=== PATIENT | male | born 1960 | race Caucasian/White ===

== ENCOUNTER 2018-02-02 14:40 | Outpatient (REF) | payer SELFPAY ==
[2018-02-02 19:32] LABS: COMMENT (LAB VIEW ONLY) 51.18 mg/dL; Microalb ug/mg Crea 6.8 ug/mg Cr
== END 2018-02-02 15:00 ==
LOC: NCHCN 14:40
PROVIDERS: PCP Internal Medicine; Visit Provider Family Medicine
DX: E11.9 Type 2 diabetes mellitus without complications (principal); Z79.4 Long term (current) use of insulin
CPT/HCPCS: 82043; 82570

== ENCOUNTER 2019-04-23 12:17 | Outpatient (REF) | payer OTHER, SELFPAY ==
[2019-04-23 15:38] LABS: Microalb ug/mg Crea 10.9 ug/mg Cr
[2019-04-23 19:40] LABS: ALT 36 U/L (16-63); AST 16 U/L (15-37); Albumin 4.2 g/dL (3.4-5.0); Alkaline Phosphatase 72 U/L (46-116); Anion Gap 11.3 mmol/L (3-11); BUN 19 mg/dL (7-18); Bilirubin, Total 0.6 mg/dL (0.2-1.0); CO2 27.7 mmol/L (21.0-32.0); CREATININE 0.87 mg/dL (0.70-1.30); Calcium 9.1 mg/dL (8.5-10.1); Chloride 98 mmol/L (98-107); Glucose 459 mg/dL (74-106); Potassium 4.5 mmol/L (3.5-5.1); Sodium 137 mmol/L (136-145); Total Protein 7.2 g/dL (6.4-8.2)
== END 2019-04-23 12:37 ==
LOC: NCHCN 12:17
PROVIDERS: PCP Internal Medicine; Visit Provider Family Medicine
DX: I10 Essential (primary) hypertension (principal); E11.9 Type 2 diabetes mellitus without complications; Z79.4 Long term (current) use of insulin
CPT/HCPCS: 80053; 82043; 82570

== ENCOUNTER 2020-02-24 07:12 | Emergency (ER) | payer OTHER, SELFPAY ==
--- NOTE | 2020-02-24 07:48 | W.ED.GENAD ---
Discharge Plan Disposition Patient Disposition: HOME Condition: Stable Discharge Details Clinical Impression: Constipation Primary Care Provider: Sebastian Stanley ED Provider: Mukul Garcia Home Meds and New Rx's Prescriptions: New docusate sodium [Colace] 100 mg capsule 100 mg PO BID Qty: 30 RF: 0 Continued atorvastatin [Lipitor] 80 MG tablet 80 mg PO DAILY RF: 0 Lantus U-100 Insulin 100 UNIT/ML solution 100 unit SQ RF: 0 aspirin [Aspir-81] 81 MG tablet,delayed release (DR/EC) 81 mg PO DAILY RF: 0 pantoprazole 40 MG tablet,delayed release (DR/EC) 40 mg PO DAILY RF: 0 lisinopril 10 MG tablet 10 mg PO DAILY RF: 0 lisinopril-hydrochlorothiazide 20-12.5 mg tablet RF: 0 metformin 1,000 mg tablet 1,000 mg PO DAILY RF: 0 Discharge Instructions Instructions: Constipation (ED) Additional Instructions: Please increase liquids in your diet today. Please contact your primary care physician to arrange follow-up. Return to the ER for any worsening or new concerning symptoms. Referrals: Jewel Winters MD [ NON-[facility] STAFF PHYSICIAN] - Medical Decision Making <Espinoza Granados DO - Last Filed: 02/24/20 07:58> 59-year-old male with high cholesterol, diabetes, hypertension, presents today for evaluation of constipation. Patient states that he recently switched from drinking notable amount of water at work every day to a caffeinated beverage. Over the last week he has had mild constipation, with no recent bowel movements in the last 48 hours. He denies any bladder narcotic use. He denies any significant weight loss. No other complaints at this time. Exam demonstrates no abdominal tenderness or other significant abnormality aside for notable hard stool ball in the rectal vault. This stool ball was then subsequently broken up into multiple pieces, with mild improvement of the patient's symptoms. We will perform a enema to help alleviate the patient's symptomatology now. Patient will be signed out to my colleague Dr. Mukul Garcia for reassessment after enema. <Mukul Garcia MD - Last Filed: 02/24/20 10:04> Patient was reassessed by Dr. Granados just prior to signout. Patient feeling much better and requesting discharge. Patient determined to be stable. Usual customary discharge instructions were reviewed with the patient. Patient was encouraged to follow-up with his doctor and to return should have any worsening or new concerning symptoms. HPI <Espinoza Granados DO - Last Filed: 02/24/20 07:58> General Date/Time Provider Initiated Documentation: 02/24/20 07:16. HPI Narrative: 59-year-old male with high cholesterol, diabetes, hypertension, presents today for evaluation of constipation. Patient states that he recently switched from drinking notable amount of water at work every day to a caffeinated beverage. Over the last week he has had mild constipation, with no recent bowel movements in the last 48 hours. He denies any bladder narcotic use. He denies any significant weight loss. No other complaints at this time. Related Data Home Medications Medication Instructions Recorded Confirmed Lantus U-100 Insulin 100 unit SQ 12/30/13 12/30/13 aspirin [Aspir-81] 81 mg PO DAILY 12/30/13 02/24/20 atorvastatin [Lipitor] 80 mg PO DAILY 12/30/13 02/24/20 lisinopril 10 mg PO DAILY 12/30/13 12/30/13 pantoprazole 40 mg PO DAILY 12/30/13 02/24/20 docusate sodium [Colace] 100 mg PO BID #30 cap 02/24/20 lisinopril-hydrochlorothiazide tab 02/24/20 02/24/20 metformin 1,000 mg PO DAILY 02/24/20 02/24/20 Previous Rx's Medication Instructions Recorded docusate sodium [Colace] 100 mg PO BID #30 cap 02/24/20 Allergies Allergy/AdvReac Type Severity Reaction Status Date / Time No Known Allergies Allergy Unverified 02/24/20 07:53 Review of Systems <Espinoza Granados DO - Last Filed: 02/24/20 07:58> All systems reviewed & are unremarkable except as noted in HPI and below PFSH <Espinoza Granados DO - Last Filed: 02/24/20 07:58> Social History Smoking/Tobacco Use Status: Never Smoking risk assessment performed?: Yes Alcohol Intake: never Drug use: Never Exam <Espinoza Granados DO - Last Filed: 02/24/20 07:58> Narrative Exam Narrative: 1.Const: Well-nourished, Well-developed, appearing stated age 2.Eyes: PERRL, no conjunctival injection, and symmetrical lids. 3.ENT: Atraumatic external nose and ears. Moist MM. Neck: Symmetric, trachea midline, No thyromegaly. 4.CVS: +S1/S2, No murmurs or gallops. Peripheral pulses 2+ and equal in all extremities. Brisk capillary refill in all extremities. 5.RESP: Unlabored respiratory effort. Clear to auscultation bilaterally. No wheezes rales or rhonchi 6.GI: Soft, Nontender/Nondistended, No hepatosplenomegaly. No guarding or rebound. Rectal exam performed with female nurse Alexa at bedside demonstrates no bulge or mass or significant abnormality. Digital rectal exam demonstrates notably large hard stool ball with firm stool, this is digitally broken up with a mild to moderate amount removed. 7.MSK: Normocephalic/Atraumatic, Extremities w/o deformity or ttp No cyanosis or clubbing, Normal movement of all extremities 8.Skin: Warm, Dry. No rashes or lesions. 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 Sensation grossly intact, no focal neurologic deficits. 10.Psych: (AAO) x3. Appropriate mood and affect Sign Out <Espinoza Granados DO - Last Filed: 02/24/20 07:58> Sign Out Data: Sign Out Comment: Pending reassessment after enemas. Last updated by Espinoza Granados DO at 02/24/20 07:59
[2020-02-24 07:50] VITALS: BP 114/83; PULSE 110; RESP 16; TEMP 36; O2SAT 98
[2020-02-24] MEDS: Lidocaine 2% Viscous 15 ML CUP 30 ML PO (08:00)
[2020-02-24 08:30] VITALS: BP 105/70; PULSE 109; RESP 16; TEMP 36; O2SAT 98
== END 2020-02-24 08:28 | disposition home or self-care (01) ==
LOC: ER 08:28
PROVIDERS: Emergency Provider Student in an Organized Health Care Education/Training Program; PCP Family Medicine
DX: K59.00 Constipation, unspecified (principal); I10 Essential (primary) hypertension; E11.9 Type 2 diabetes mellitus without complications; Z79.4 Long term (current) use of insulin
CPT/HCPCS: 99283

== ENCOUNTER 2020-03-06 11:03 | Outpatient (REF) | payer OTHER, SELFPAY ==
[2020-03-06 18:13] LABS: HCT 37.8 % (40.0-50.0); HGB 13.2 g/dL (13.5-17.5); MCH 31.9 pg (27.0-33.0); MCHC 34.9 % (32.0-36.0); MCV 91.3 fL (80-95); MPV 11.5 fL (8.0-11.0); Platelet Count 240 10^3/uL (130-400); RBC 4.14 10^6/uL (4.36-5.78); RDW 11.7 % (11.8-14.1); RDW-SD 39.4 fL; WBC 9.65 10^3/uL (4.4-10.8)
[2020-03-06 18:42] LABS: ALT 29 U/L (16-63); AST 11 U/L (15-37); Albumin 3.9 g/dL (3.4-5.0); Alkaline Phosphatase 54 U/L (46-116); Anion Gap 9.9 mmol/L (3-11); BUN 39 mg/dL (7-18); Bilirubin, Total 0.3 mg/dL (0.2-1.0); CO2 25.1 mmol/L (21.0-32.0); CREATININE 1.83 mg/dL (0.70-1.30); Calcium 10.3 mg/dL (8.5-10.1); Chloride 103 mmol/L (98-107); Estimated GFR 38.21 (mL/min/1.73m2); Glucose 87 mg/dL (74-106); Potassium 4.1 mmol/L (3.5-5.1); Sodium 138 mmol/L (136-145); Total Protein 6.8 g/dL (6.4-8.2)
[2020-03-06 18:44] LABS: Hemoglobin A1C 5.9 % (<5.7)
== END 2020-03-06 11:23 ==
LOC: NCHCN 11:03
PROVIDERS: PCP Family Medicine; Visit Provider Family Medicine
DX: E11.9 Type 2 diabetes mellitus without complications (principal); R07.89 Other chest pain
CPT/HCPCS: 80053; 85027; 83036

== ENCOUNTER 2020-03-11 14:10 | Outpatient (REF) | payer OTHER, SELFPAY ==
[2020-03-15 08:01] LABS: Patient Race White; SARS-CoV-2 RNA Undetected (Undetected); SARS-CoV-2 Specimen Source Nasal
== END 2020-03-11 14:30 ==
LOC: NCHCN 14:10
PROVIDERS: PCP Family Medicine; Visit Provider Nurse Practitioner Family
DX: Z20.828 Contact with and (suspected) exposure to other viral communicable diseases (principal)
CPT/HCPCS: U0003

== ENCOUNTER 2020-03-21 08:57 | Outpatient (REF) | payer OTHER, SELFPAY ==
[2020-03-21 18:24] LABS: BUN 17 mg/dL (7-18); CREATININE 1.33 mg/dL (0.70-1.30); Chloride 103 mmol/L (98-107); Estimated GFR 55.23 (mL/min/1.73m2); Glucose 219 mg/dL (74-106); Sodium 139 mmol/L (136-145)
== END 2020-03-21 09:17 ==
LOC: NCHCN 08:57
PROVIDERS: PCP Family Medicine; Visit Provider Family Medicine
DX: N28.9 Disorder of kidney and ureter, unspecified (principal)
CPT/HCPCS: 80048

== ENCOUNTER 2021-03-17 15:40 | Outpatient (REF) | payer OTHER, SELFPAY ==
[2021-03-17 22:45] LABS: Anion Gap 7.8 mmol/L (3-11); BUN 21 mg/dL (7-18); CO2 28.2 mmol/L (21.0-32.0); CREATININE 1.3 mg/dL (0.70-1.30); Calcium 9.4 mg/dL (8.5-10.1); Chloride 101 mmol/L (98-107); Glucose 188 mg/dL (74-106); Sodium 137 mmol/L (136-145)
== END 2021-03-17 15:41 | disposition home or self-care (01) ==
LOC: LBN 15:40
PROVIDERS: PCP Family Medicine; Visit Provider Family Medicine
DX: E11.9 Type 2 diabetes mellitus without complications (principal); I10 Essential (primary) hypertension
CPT/HCPCS: 80048; 83036

== ENCOUNTER 2021-05-06 21:52 | Outpatient (REF) | payer BC, SELFPAY ==
[2021-05-06 22:04] LABS: BUN 39 mg/dL (7-18); CREATININE 1.6 mg/dL (0.70-1.30); Calcium 10.4 mg/dL (8.5-10.1); Chloride 96 mmol/L (98-107); Estimated GFR 44.46 (mL/min/1.73m2); Potassium 5.4 mmol/L (3.5-5.1); Sodium 131 mmol/L (136-145)
[2021-05-06 23:09] LABS: Glucose 527 mg/dL (74-106)
[2021-05-08 15:09] LABS: COVID-19 RT-PCR UVMMC Result Negative (Negative)
== END 2021-05-06 21:53 | disposition home or self-care (01) ==
LOC: LBN 21:52
PROVIDERS: PCP Family Medicine; Visit Provider Physician Assistant Medical
DX: E11.9 Type 2 diabetes mellitus without complications (principal)
CPT/HCPCS: 80048; U0003

== ENCOUNTER 2021-05-19 17:24 | Outpatient (REF) | payer BC, SELFPAY ==
[2021-05-19 16:31] LABS: HCT 36.5 % (40.0-50.0); HGB 12.6 g/dL (13.5-17.5); MCH 31.5 pg (27.0-33.0); MCHC 34.5 % (32.0-36.0); MCV 91.3 fL (80-95); MPV 12.2 fL (8.0-11.0); Platelet Count 170 10^3/uL (130-400); RDW 11.7 % (11.8-14.1); RDW-SD 39.2 fL
[2021-05-19 17:34] LABS: ALT 48 U/L (16-63); AST 19 U/L (15-37); Albumin 3.8 g/dL (3.4-5.0); Alkaline Phosphatase 62 U/L (46-116); Anion Gap 10.2 mmol/L (3-11); BUN 19 mg/dL (7-18); Bilirubin, Total 0.5 mg/dL (0.2-1.0); CO2 24.8 mmol/L (21.0-32.0); CREATININE 1.2 mg/dL (0.70-1.30); Calcium 8.4 mg/dL (8.5-10.1); Calculated LDL 79 mg/dL (<100); Chloride 105 mmol/L (98-107); Cholesterol 138 mg/dL (<200); Glucose 131 mg/dL (74-106); HDL Cholesterol 38 mg/dL (40-60); Potassium 4.4 mmol/L (3.5-5.1); Sodium 140 mmol/L (136-145); Total Protein 6.8 g/dL (6.4-8.2); Triglyceride 109 mg/dL (<150)
== END 2021-05-19 17:25 | disposition home or self-care (01) ==
LOC: LBN 17:24
PROVIDERS: PCP Family Medicine; Visit Provider Family Medicine
DX: N28.9 Disorder of kidney and ureter, unspecified (principal); D64.9 Anemia, unspecified; E11.9 Type 2 diabetes mellitus without complications
CPT/HCPCS: 80053; 80061; 85027

== ENCOUNTER 2022-05-18 17:54 | Outpatient (REF) | payer BC, SELFPAY ==
[2022-05-18 14:06] LABS: HCT 42.8 % (40.0-50.0); MCH 31.4 pg (27.0-33.0); MCV 90 fL (80-95); MPV 10.4 fL (8.0-11.0); Platelet Count 208 10^3/uL (130-400); RBC 4.78 10^6/uL (4.36-5.78); RDW 12.6 % (11.8-14.1); RDW-SD 41.6 fL; WBC 8.77 10^3/uL (4.4-10.8)
[2022-05-18 14:58] LABS: Iron 135 ug/dL (65-175); Total Iron Binding Capacity 403 ug/dL (250-450); Transferrin Sat 33 % (20-55)
[2022-05-18 15:00] LABS: Hemoglobin A1C 6.3 % (<5.7)
[2022-05-18 15:30] LABS: ALT 74 U/L (16-63); AST 40 U/L (15-37); Albumin 4.6 g/dL (3.4-5.0); Alkaline Phosphatase 67 U/L (46-116); BUN 18 mg/dL (7-18); Bilirubin, Total 0.7 mg/dL (0.2-1.0); CREATININE 1.1 mg/dL (0.70-1.30); Calcium 9.8 mg/dL (8.5-10.1); Chloride 97 mmol/L (98-107); Estimated GFR 76.85 (mL/min/1.73m2); Ferritin 74 ng/mL (26-388); Glucose 110 mg/dL (74-106); Potassium 4.7 mmol/L (3.5-5.1); Sodium 132 mmol/L (136-145); Total Protein 7.7 g/dL (6.4-8.2); Vitamin B12 347 pg/mL (193-986)
[2022-05-18 21:39] LABS: COMMENT (LAB VIEW ONLY) 138.91 mg/dL; Microalb ug/mg Crea 14.6 ug/mg Cr
== END 2022-05-18 17:55 | disposition home or self-care (01) ==
LOC: LBN 17:54
PROVIDERS: PCP Family Medicine; Visit Provider Family Medicine
DX: D64.9 Anemia, unspecified (principal); E11.9 Type 2 diabetes mellitus without complications; Z79.4 Long term (current) use of insulin; Z79.899 Other long term (current) drug therapy; E78.5 Hyperlipidemia, unspecified
CPT/HCPCS: 80053; 85027; 82043; 82570; 82607; 82728; 83036; 83540; 83550

== ENCOUNTER 2022-05-19 09:58 | Emergency (ER) | payer BC, SELFPAY ==
[2022-05-19 10:13] VITALS: BP 151/81; PULSE 97; RESP 18; TEMP 36.9; O2SAT 99
--- NOTE | 2022-05-19 10:28 | ED.GENADUL_ITS ---
Discharge Plan Disposition Patient Disposition: Home Condition: Stable Discharge Details Clinical Impression: Bat bite of finger Primary Care Provider: Sebastian Stanley ED Provider: Umair Simon Home Meds and New Rx's Prescriptions: Continued atorvastatin [Lipitor] 80 MG tablet 80 mg PO DAILY Lantus U-100 Insulin 100 UNIT/ML solution 100 unit SQ aspirin [Aspir-81] 81 MG tablet,delayed release (DR/EC) 81 mg PO DAILY pantoprazole 40 MG tablet,delayed release (DR/EC) 40 mg PO DAILY lisinopril 10 MG tablet 10 mg PO DAILY lisinopril-hydrochlorothiazide 20-12.5 mg tablet Label Comments: TAKE 1 TABLET BY MOUTH ONCE DAILY FOR BLOOD PRESSURE AND KIDNEYS metformin 1,000 mg tablet 1,000 mg PO DAILY Label Comments: TK 1 T PO QD FOR BLOOD SUGAR docusate sodium [Colace] 100 mg capsule 100 mg PO BID Qty: 30 0RF Discharge Instructions Instructions: Rabies Vaccine (By injection) Additional Instructions: You should be contacted to set up to have your subsequent vaccines on 05/22, 05/26, 06/02 if you develop severe pain, fevers or feel more ill return to the emergency department Medical Decision Making 61 yo male who denies prior vaccinations for rabies and not on i mmunosuppressives, comes in with cc of bat bite. HE was changing in his room last night, and his foot hit a bat on the floor he did not see and it started to fly around and he states it bit his left index finger. Denies fall or other injuries, has no symptoms today and feels well. He has a small 1mm abrasion on the lateral distal left index finger, full rom and no bony tenderness. No erythema. Discussed with pt that this is high risk and recommend rabies vaccine and immunoglobulin which he is agreeable to. He is also agreeable to the subsequent vaccines on day 3, 7, and 14 which I have ordered to be done through the infusion room. Will d/c, return precautions given Differential Diagnosis Differential Diagnosis: bat bite, rabies exposure HPI General Mode of arrival: ambulatory . Date/Time Provider Initiated Documentation: 05/19/22 10:00 . Limitations to Documentation: no limitations . Information obtained by: patient . History of Present Illness 61 year old M presents to the emergency department with the chief complaint of bat bite, described as mild, Patient reports no radiation. Patient started experiencing this day(s) (1) and it has been constant. No relieving factors improve symptom(s), No exacerbating factors reported . Patient notes no other symptoms.. Patient did receive the following treatments prior to arrival, none Related Data Home Medications Medication Instructions Recorded Confirmed aspirin 81 mg tablet,delayed 81 mg PO DAILY 12/30/13 02/24/20 release (Aspir-) atorvastatin 80 mg tablet (Lipitor) 80 mg PO DAILY 12/30/13 02/24/20 insulin glargine 100 unit/mL 100 unit SQ 12/30/13 12/30/13 subcutaneous solution (Lantus U-100 Insulin) lisinopril 10 mg tablet 10 mg PO DAILY 12/30/13 12/30/13 pantoprazole 40 mg tablet,delayed 40 mg PO DAILY 12/30/13 02/24/20 release docusate sodium 100 mg capsule 100 mg PO BID #30 caps 02/24/20 (Colace) lisinopril 20 tab 02/24/20 02/24/20 mg-hydrochlorothiazide 12.5 mg tablet metformin 1,000 mg tablet 1,000 mg PO DAILY 02/24/20 02/24/20 Previous Rx's Medication Instructions Recorded docusate sodium 100 mg capsule 100 mg PO BID #30 caps 02/24/20 (Colace) Allergies Allergy/AdvReac Type Severity Reaction Status Date / Time No Known Allergies Allergy Unverified 02/24/20 07:53 General Stated Complaint: GenMedical DIDIER: 4 Review of Systems All systems reviewed & are unremarkable except as noted in HPI and below Constitutional Constitutional: Denies chills, Denies fever(s) and Denies weakness Cardiovascular Cardiovascular: Denies chest pain and Denies dyspnea Respiratory Respiratory: Denies cough and Denies dyspnea Gastrointestinal Gastrointestinal: Denies abdominal pain, Denies nausea and Denies vomiting Musculoskeletal Musculoskeletal: Denies joint swelling Integumentary/Breasts Skin/Breast: Denies rash Neurologic Neurologic: Denies weakness Psychiatric Psychiatric: Denies depression PFSH All Active Problems (Updated 05/19/22 @ 10:34 by Umair Simon MD) Bat bite of finger (Acute) Social History Smoking/Tobacco Use Status: Never Smoking risk assessment performed?: Yes Alcohol Intake: never Drug use: Never Do you feel safe at home: Yes Do you feel safe in your relationship?: Yes Exam Const General: no acute distress Orientation: alert HENMT Head: normal to inspection Ears: external ears normal General nose exam: external nose normal Mouth: moist mucous membranes Eyes General: appearance normal, both eyes and all related structures Neck Neck: normal visual inspection Resp Effort & Inspection: normal respiratory effort and able to speak in complete sentences Cardio Rate: regular rate Skin General skin exam: no rashes or lesions noted Neuro General: patient alert and patient oriented x3 Extrem General: full ROM and capillary refill normal Psych Mental Status: mental status grossly normal Course Vital Signs Vital signs: Vital Signs Temperature 36.9 C 05/19/22 10:13 Pulse 97 H 05/19/22 10:13 Respiratory Rate 18 05/19/22 10:13 Blood Pressure 151/81 H 05/19/22 10:13 Pulse Oximetry 99 05/19/22 10:13 Temperature 36.9 C 05/19/22 10:13 Temperature Source Tympanic 05/19/22 10:13 Pulse 97 H 05/19/22 10:13 Respiratory Rate 18 05/19/22 10:13 Respiratory Effort 05/19/22 10:15 Blood Pressure 151/81 H 05/19/22 10:13 Blood Pressure Position Supine 05/19/22 10:13 Pulse Oximetry 99 05/19/22 10:13 Oxygen Delivery Method Room Air 05/19/22 10:13 Oxygen Flow Rate 0 05/19/22 10:13 Pain Level 0 05/19/22 10:13
--- NOTE | 2022-05-19 10:41 | NUR.NOTE ---
Nursing Note: Pt preparing to transfer to [place] via EMS and pt requesting nicotine inhaler for transport. Last dose delivered 2 hours ago. Discussed situation w/ ED physician who advised to administer nicotine early for transport.
--- NOTE | 2022-05-19 10:55 | NUR.NOTE ---
Nursing Note: Faxed rabies vaccination orders to [facility] and spoke with Daylin that they are aware. Patient given copy of vaccination orders for further dates of shots. F[facility] Bite [facility] and spoke with Justin dispatcher.
[2022-05-19] MEDS: Rabies Immune Globulin 1,500 UNIT/5 ML VIAL 1500 UNITS IM (11:18)
[2022-05-19 15:13] VITALS: RESP 15
== END 2022-05-19 11:48 | disposition home or self-care (01) ==
PROVIDERS: Emergency Provider Emergency Medicine; PCP Family Medicine
DX: S61.251A Open bite of left index finger without damage to nail, initial encounter (principal); Z23 Encounter for immunization; W55.81XA Bitten by other mammals, initial encounter
CPT/HCPCS: 90471; 99282; 90675

== ENCOUNTER 2022-05-22 00:19 | Outpatient (RCR) | payer BC, SELFPAY | END 2022-05-25 23:59 | disposition home or self-care (01) | LOC: INF 00:19 | PROVIDERS: PCP Family Medicine; Visit Provider Emergency Medicine | DX: Z20.3 Contact with and (suspected) exposure to rabies (principal) | CPT/HCPCS: 90471; 96372; 90675 ==

== ENCOUNTER 2022-06-02 03:36 | Outpatient (RCR) | payer BC, SELFPAY | END 2022-06-22 23:59 | disposition home or self-care (01) | LOC: INF 03:36 | PROVIDERS: PCP Family Medicine; Visit Provider Emergency Medicine | DX: Z20.3 Contact with and (suspected) exposure to rabies (principal) | CPT/HCPCS: 90471; 90675 ==

== ENCOUNTER 2022-08-08 13:09 | Emergency (ER) | payer BC, SELFPAY ==
[2022-08-08] VITALS (7 sets, daily range): BP systolic 144–162; BP diastolic 82–84; PULSE 83–87; RESP 14–18; TEMP 36.7; O2SAT 98
--- NOTE | 2022-08-08 13:15 | RT.EKG_ITS ---
APPROVED REPORT Exam: Resting ECG Reason for Exam: near syncope Patient Location: E HR:85 bpm ECG Measurements Heart Rate 85 AXIS SD 198 P 22 QRSd 94 QRS -3 QT 365 T 5 QTc 434 Conclusion Sinus rhythm...normal P axis, V-rate 60- 99 Ventricular premature complex...V complex w/ short R-R interval Inferior infarct, old...Q >35mS, II III aVF motion artifact, no stemi
--- NOTE | 2022-08-08 13:28 | ED.GENADUL_ITS ---
Discharge Plan Disposition Patient Disposition: Home Condition: Stable Discharge Details Clinical Impression: Lightheaded Primary Care Provider: Sebastian Stanley ED Provider: Umair Simon Home Meds and New Rx's Prescriptions: Continued atorvastatin [Lipitor] 80 MG tablet 80 mg PO DAILY insulin glargine [Lantus U-100 Insulin] 100 UNIT/ML solution 100 unit SQ aspirin [Aspir-81] 81 MG tablet,delayed release (DR/EC) 81 mg PO DAILY Patient Comments: not taking pantoprazole 40 MG tablet,delayed release (DR/EC) 40 mg PO DAILY lisinopril 10 MG tablet 10 mg PO DAILY lisinopril-hydrochlorothiazide 20-12.5 mg tablet 1 tab PO DAILY Patient Comments: TAKE 1 TABLET BY MOUTH ONCE DAILY FOR BLOOD PRESSURE AND KIDNEYS metformin 1,000 mg tablet 1,000 mg PO DAILY Patient Comments: TK 1 T PO QD FOR BLOOD SUGAR docusate sodium [Colace] 100 mg capsule 100 mg PO BID Qty: 30 0RF Discharge Instructions Instructions: Lightheadedness (ED) Additional Instructions: your ekg and blood work were reassuing as was your exam follow up with your primary care provider within 1 week if you feel more ill, have severe pain or difficulty breathing return to the emergency department Medical Decision Making 61 yo male with hx of dm, htn, hld, who comes in after he had a near syncope. He states he was feeling well today and was standing in a store parking lot talking with someone when he suddenly felt lightheaded and like he may pass out. He never had loc, and currently has no symptoms other than nausea. Denies having any chest pain/pressure, dyspnea, no fevers or chills recently. HE arrives ambulatory with normal gait, caox4 speaking clearly. He has no focal motor or sensation deficits, CN II-XII intact. Soft nontender abdomen, clear lungs, no murmurs, no leg swelling or calf tenderness. IT has been warm the last few days and he is active, suspect mild dehydration vs vasovagal, ekg unremarkable, will obtain cbc, cmp, troponin and monitor. initial labs unremarkable other than mild low mag, still in sinus, nausea improved, will obtain delta troponin pt stable, asymptomatic, ambulating without difficulty, delta troponin negative. HE does state he has been working outside in the hot weather and not drinking lots of fluids so suspect component of dehydration, given reassuring workup and normal monitoring here feel he is stable for d/c, return precautions given and advised to f/u with pcp Differential Diagnosis Differential Diagnosis: vasovagal, dehydration, nstemi, electrolyte abnormality Lab Data Lab results reviewed: Yes I reviewed the patient's lab results. ECG Data Attestation: I personally reviewed and interpreted this ECG (s) as follows: Prior ECG tracings: not available for review Interpretation: motion artifact, sinus rhythm, rate of 85, pr 198, no stemi HPI General Mode of arrival: ambulatory . Date/Time Provider Initiated Documentation: 08/08/22 13:10 . Limitations to Documentation: no limitations . Information obtained by: patient . History of Present Illness 61 year old M presents to the emergency department with the chief complaint of near syncope, described as moderate, Patient started experiencing this hour(s) (1) and it has been now resolved. No relieving factors improve symptom(s), No exacerbating factors reported . Patient notes denies chest pain and fev er/chills. Patient did receive the following treatments prior to arrival, none Related Data Home Medications Medication Instructions Recorded Confirmed aspirin 81 mg tablet,delayed 81 mg PO DAILY 12/30/13 02/24/20 release (Aspir-) atorvastatin 80 mg tablet (Lipitor) 80 mg PO DAILY 12/30/13 08/08/22 insulin glargine 100 unit/mL 100 unit SQ 12/30/13 12/30/13 subcutaneous solution (Lantus U-100 Insulin) lisinopril 10 mg tablet 10 mg PO DAILY 12/30/13 08/08/22 pantoprazole 40 mg tablet,delayed 40 mg PO DAILY 12/30/13 08/08/22 release docusate sodium 100 mg capsule 100 mg PO BID #30 caps 02/24/20 08/08/22 (Colace) lisinopril 20 1 tab PO DAILY 02/24/20 08/08/22 mg-hydrochlorothiazide 12.5 mg tablet metformin 1,000 mg tablet 1,000 mg PO DAILY 02/24/20 08/08/22 Previous Rx's Medication Instructions Recorded docusate sodium 100 mg capsule 100 mg PO BID #30 caps 02/24/20 (Colace) Allergies Allergy/AdvReac Type Severity Reaction Status Date / Time No Known Allergies Allergy Unverified 08/08/22 13:14 General Stated Complaint: Dizzy/Sync DIDIER: 3 Review of Systems All systems reviewed & are unremarkable except as noted in HPI and below Constitutional Constitutional: Denies chills, Denies fever(s) and Denies weakness Cardiovascular Cardiovascular: Denies chest pain and Denies dyspnea Respiratory Respiratory: Denies cough and Denies dyspnea Gastrointestinal Gastrointestinal: Denies abdominal pain and Denies vomiting Musculoskeletal Musculoskeletal: Denies joint swelling Neurologic Neurologic: Denies weakness Endocrine Endocrine: Denies cold intolerance PFSH All Active Problems (Updated 08/08/22 @ 16:52 by Umair Simon MD) Lightheaded (Acute) Social History Smoking/Tobacco Use Status: Never Smoking risk assessment performed?: Yes Alcohol Intake: never Drug use: Never Do you feel safe at home: Yes Do you feel safe in your relationship?: Yes Exam Const General: no acute distress Orientation: alert HENMT Head: normal to inspection Ears: external ears normal General nose exam: external nose normal Mouth: moist mucous membranes Eyes General: appearance normal, both eyes and all related structures Neck Neck: normal visual inspection Resp Effort & Inspection: normal respiratory effort and able to speak in complete sentences Auscultation: clear to auscultation bilaterally Cardio Jugular venous pressure: no JVD Rate: regular rate Heart Sounds: no murmurs GI Palpation: soft and nontender Skin General skin exam: no rashes or lesions noted Neuro General: patient alert and patient oriented x3 Extrem General: normal to inspection Psych Mental Status: mental status grossly normal Course Vital Signs Vital signs: Vital Signs Temperature 36.7 C 08/08/22 13:13 Pulse 85 08/08/22 13:13 Respiratory Rate 18 08/08/22 13:13 Pulse Oximetry 98 08/08/22 13:13 Temperature 36.7 C 08/08/22 13:13 Temperature Source Temporal Artery Scan 08/08/22 13:13 Pulse 85 08/08/22 13:13 Respiratory Rate 18 08/08/22 13:13 Respiratory Effort Normal, Non-Labored 08/08/22 13:14 Blood Pressure 144/84 H 08/08/22 13:14 Pulse Oximetry 98 08/08/22 13:13 Oxygen Delivery Method Room Air 08/08/22 13:13 Oxygen Flow Rate 0 08/08/22 13:13 PAWSS Have you Been Recently Intoxicated or Drunk Within the Last 30 days?: No Have you Ever Experienced Previous Episodes of Alcohol Withdrawal?: No Have you ever Experienced Withdrawal Seizures?: No Have you ever Experienced Delirium Tremens(DT)s?: No Have you ever undergone Alcohol Rehabilitation Treatment (i.e, inpt ot outpatient treatment programs)?: No Have you ever Experienced Blackouts?: No Have you ever Combined Alcohol with other Downers within the last 90 days?: No Have you ever Combined Alcohol with any other Substance of Abuse during the last 90 days?: No Positive Blood Alcohol level on Presentation? [PCS.BAL]: No Evidence of Increased Autonomic Activity (i.e. HR>120, tremor, sweating, agitation, nausea)?: No Result: 0
[2022-08-08] MEDS: Normal Saline 1,000 ML 1000 ML IV (13:36)
[2022-08-08] MEDS: Ondansetron 4 MG/2 ML VIAL IVP (13:36)
[2022-08-08 13:38] LABS: Abs Immature Grans 0.03 10^3/uL (0.0-0.06); Absolute Basophil Count 0.03 10^3/uL (0.0-0.2); Absolute Eosinophil Count 0.08 10^3/uL (0.0-0.7); Absolute Lymphocyte Count 0.94 10^3/uL (1.2-3.4); Absolute Monocyte Count 0.74 10^3/uL (0.1-0.8); Absolute Neutrophil Count 4.81 10^3/uL (1.2-6.7); Basophils % 0.5; Eosinophils % 1.2; HCT 40.4 % (40.0-50.0); HGB 14.6 g/dL (13.5-17.5); Immature Grans % 0.5; Lymphocytes % 14.2; MCH 31.3 pg (27.0-33.0); MCHC 36.1 % (32.0-36.0); MCV 87 fL (80-95); MPV 9.6 fL (8.0-11.0); Monocytes % 11.2; Neutrophils % 72.4; Platelet Count 194 10^3/uL (130-400); RBC 4.66 10^6/uL (4.36-5.78); RDW 11.7 % (11.8-14.1); RDW-SD 36.9 fL; WBC 6.63 10^3/uL (4.4-10.8)
[2022-08-08 13:57] LABS: ALT 77 U/L (16-63); AST 34 U/L (15-37); Albumin 3.9 g/dL (3.4-5.0); Alkaline Phosphatase 66 U/L (46-116); Anion Gap 10.4 mmol/L (3-11); BUN 15 mg/dL (7-18); Bilirubin, Total 0.5 mg/dL (0.2-1.0); CO2 23.6 mmol/L (21.0-32.0); CREATININE 1.1 mg/dL (0.70-1.30); Calcium 8.7 mg/dL (8.5-10.1); Chloride 102 mmol/L (98-107); Estimated GFR 76.85 (mL/min/1.73m2); Glucose 161 mg/dL (74-106); Lipase 50 U/L (16-77); Magnesium 1.6 mg/dL (1.8-2.4); Sodium 136 mmol/L (136-145); Total Protein 7.3 g/dL (6.4-8.2); Troponin I < 50 ng/L (<or=60)
[2022-08-08 16:40] LABS: Troponin I < 50 ng/L (<or=60)
== END 2022-08-08 16:58 | disposition home or self-care (01) ==
PROVIDERS: Emergency Provider Emergency Medicine; PCP Family Medicine
DX: R55 Syncope and collapse (principal); R42 Dizziness and giddiness; I10 Essential (primary) hypertension; E11.9 Type 2 diabetes mellitus without complications; E83.42 Hypomagnesemia; R11.0 Nausea
CPT/HCPCS: 36415; 80053; 83690; 93005; 96361; 96374; 99284; 83735; 84484; 85025; 93010; J2405

== ENCOUNTER 2023-06-09 12:15 | Outpatient (REF) | payer BC, SELFPAY ==
[2023-06-09 15:45] LABS: HCT 40.9 % (40.0-50.0); HGB 14.1 g/dL (13.5-17.5); MCH 31.3 pg (27.0-33.0); MCHC 34.5 % (32.0-36.0); MCV 91 fL (80-95); MPV 10.3 fL (8.0-11.0); Platelet Count 200 10^3/uL (130-400); RDW 11.9 % (11.8-14.1); RDW-SD 39.9 fL; WBC 8.73 10^3/uL (4.4-10.8)
[2023-06-09 16:05] LABS: ALT 68 U/L (16-63); AST 35 U/L (15-37); Albumin 4.3 g/dL (3.4-5.0); Alkaline Phosphatase 84 U/L (46-116); Anion Gap 11.3 mmol/L (3-11); BUN 19 mg/dL (7-18); CO2 25.7 mmol/L (21.0-32.0); CREATININE 1.2 mg/dL (0.70-1.30); Calcium 9.5 mg/dL (8.5-10.1); Chloride 102 mmol/L (98-107); Glucose 71 mg/dL (74-106); Potassium 4.4 mmol/L (3.5-5.1); Sodium 139 mmol/L (136-145); Total Protein 7.5 g/dL (6.4-8.2)
== END 2023-06-09 12:16 | disposition home or self-care (01) ==
LOC: NCHCN 12:15
PROVIDERS: PCP Family Medicine; Visit Provider Family Medicine
DX: R74.01 Elevation of levels of liver transaminase levels (principal); E11.9 Type 2 diabetes mellitus without complications
CPT/HCPCS: 80053; 85027; 83036

== ENCOUNTER 2024-06-26 10:14 | Outpatient (REF) | payer BC, SELFPAY ==
[2024-06-26 19:31] LABS: COMMENT (LAB VIEW ONLY) 171.41 mg/dL; Prot/Crea Ur Ratio 0.54
== END 2024-06-26 10:15 | disposition home or self-care (01) ==
LOC: NCHCN 10:14
PROVIDERS: PCP Student in an Organized Health Care Education/Training Program; Visit Provider Student in an Organized Health Care Education/Training Program
DX: E11.9 Type 2 diabetes mellitus without complications (principal)
CPT/HCPCS: 82565; 84156

== ENCOUNTER 2024-11-23 19:11 | Outpatient (REF) | payer BC, SELFPAY ==
[2024-11-23 16:07] LABS: ALT 84 U/L (16-63); AST 53 U/L (15-37); Albumin 4.2 g/dL (3.4-5.0); Alkaline Phosphatase 82 U/L (46-116); Anion Gap 11.6 mmol/L (3-11); BUN 15 mg/dL (7-18); Bilirubin, Total 0.9 mg/dL (0.2-1.0); CO2 24.4 mmol/L (21.0-32.0); Calcium 8.8 mg/dL (8.5-10.1); Chloride 102 mmol/L (98-107); Estimated GFR 68.38 (mL/min/1.73m2); Glucose 180 mg/dL (74-106); Magnesium 1.4 mg/dL (1.8-2.4); Potassium 4.6 mmol/L (3.5-5.1); Sodium 138 mmol/L (136-145); Total Protein 7.3 g/dL (6.4-8.2)
== END 2024-11-23 19:12 | disposition home or self-care (01) ==
LOC: NCHCN 19:11
PROVIDERS: PCP Student in an Organized Health Care Education/Training Program; Visit Provider Student in an Organized Health Care Education/Training Program
DX: I10 Essential (primary) hypertension (principal)
CPT/HCPCS: 80053; 83735

== ENCOUNTER 2025-01-17 11:56 | Day surgery (SDC) | payer BC, SELFPAY ==
[2025-01-17 12:21] VITALS: BP 172/85; PULSE 76; RESP 16; TEMP 36.5; O2SAT 97
[2025-01-17] MEDS: Lactated Ringers 1,000 ML 80 ML IV (12:43)
--- NOTE | 2025-01-17 12:44 | W.ANESPRE ---
General Info Date of Service Date Performed: 01/17/25 Height: 5 ft 7.5 in Weight: 83.4 g Body Mass Index (BMI): 0.0 Surgical Procedure: Operation Date: 01/17/25 14:35 Proposed Procedure Side Surgeon p Colonoscopy Kathi Brown MD Meds Allergies and Home Medications Allergies Allergy/AdvReac Type Severity Reaction Status Date / Time No Known Allergies Allergy Verified 01/17/25 12:29 Home Medication ?Medication ?Instructions ?Recorded atorvastatin 80 mg tablet (Lipitor) 80 mg PO DAILY 12/30/13 lisinopril 20 1 tab PO DAILY 02/24/20 mg-hydrochlorothiazide 12.5 mg tablet insulin glargine 100 unit/mL 20 unit subcut HS 09/19/24 subcutaneous solution (Lantus U-100 Insulin) omeprazole 40 mg capsule,delayed 40 mg PO DAILY 09/19/24 release sildenafil 50 mg tablet 50 mg PO DAILY PRN 09/19/24 bisacodyl 5 mg tablet,delayed 5 mg PO ONCE colonscopy bowel prep 01/09/25 release (Dulcolax (bisacodyl)) #4 tabs metformin 1,000 mg tablet 1,000 mg PO DAILY 01/09/25 polyethylene glycol 3350 17 238 g PO ONCE colonoscopy prep 01/09/25 gram/dose oral powder #238 grams Current Visit Medications: Current Medications Generic Name Dose Route Start Last Admin Trade Name Freq PRN Reason Stop Dose Admin Ringer's Solution 1,000 mls @ 80 mls/hr 01/17/25 06:00 01/17/25 12:43 IV 01/17/25 23:59 80 mls/hr INFUSION JENNIFER Administration IV Miscellaneous Supplies 1 each 01/17/25 06:00 Iv Access IV 01/17/25 23:59 DIRECTED JENNIFER Sodium Chloride 0 ml 01/17/25 06:00 Normal Saline Flush 10 Ml Syr IV 01/17/25 23:59 PRN PRN Sodium Chloride 0 ml 01/17/25 06:00 Normal Saline 10 Ml Vial IJ 01/17/25 23:59 DIRECTED PRN Sterile Water 0 ml 01/17/25 06:00 Water,Injection,Sterile 10 Ml Vial IJ 01/17/25 23:59 DIRECTED PRN PFSH Active Problems Active Problems: Problem Status Onset Code GERD (gastroesophageal reflux disease) Chronic K21.9 Essential hypertension Acute I10 Alcohol intake above recommended sensible limits Acute F10.90 Hyperlipidemia Acute E78.5 Type II diabetes mellitus Acute E11.9 Medical History Medical History Cataract, right eye Exposure to viral hepatitis Alcohol abuse Erectile dysfunction Anemia Tinea corporis Tobacco Smoking/Tobacco Use Status: Never Passive smoking exposure: No Alcohol Alcohol Intake: current Alcohol intake frequency: 0-2 drinks per day Alcohol type: beer, wine and hard liquor Substance Use Substance use: Never Substance use type: does not use Vital Signs and Lab Results Vital Signs Most Recent Vital Signs in EMR: Most Recent Vital Signs Temp Pulse Resp BP Pulse Ox 36.5 C 76 16 172/85 H 97 01/17/25 12:21 01/17/25 12:21 01/17/25 12:21 01/17/25 12:21 01/17/25 12:21 Point of Care Results Point of Care Results: Finger Stick Blood Glucose 114 01/17/25 12:34 Anesthesia Assessment and Plan Anesthesia History Personal History: No History of Anesthesia Complications Family History: No Family History of Anesthesia Complications Exercise Tolerance Exercise Tolerance: Metabolic Equivalents>4 Pertinent Negatives Pertinent Negatives: No Symptoms of GERD (well-controlled with meds), No Major Cardiovascular Symptoms or Complaints and No Major Pulmonary Symptoms or Complaints Cardiac & Pulmonary Exam Cardiac Exam: Normal S1/S2 Heart Sounds Pulmonary Exam: Clear Bilateral Breath Sounds and No cough or Cold Implantable Cardiac Device Does patient have a Pacemaker or an ICD?: No Airway Exam Known Difficult Airway: No Mallampati Class: 2 Mouth Opening: Normal (> 3cm) Thyromental Distance: Greater than 3 cm Neck Range of Motion: Full ROM Neck Circumference: Normal Teeth Condition: Normal Dentition (Recent tooth loss, left top front, no others loose per pt) ASA Classification ASA Score: ASA 2 Emergency Case?: No NPO Status NPO Status: NPO Clears >2 hours, Solids >8 hours Anesthesia Plan Resuscitation Status: Full Code Anesthesia Technique: General Anesthesia Airway Planned: Natural Airway Monitors Used: Standard Monitors
--- NOTE | 2025-01-17 14:01 | COLE_ITS ---
Date of service: 01/17/25 Time of Service: 14:01 Colonoscopy Report Date of procedure: 01/17/25 Pre-op diagnosis general: Screening for colorectal cancer Post-op diagnosis procedure note: same Procedure: Colonoscopy Surgeon: Kathi Brown Anesthesia Type: General:No Airway Estimated blood loss (mL): 0 Pathology: none sent Complications: None Indications: screening for colorectal cancer Prep: Miralax/Dulcolax (Excellent) Procedure Description: Informed consent was obtained and the patient was taken to the procedure area. The patient was placed in left lateral decubitus position on the procedure table. Timeout was performed. Anesthesia was induced. A lubricated colonoscope was inserted through the anus and passed to the cecum. The cecum was identified by the ileocecal valve and the appendiceal orifice. The scope was then slowly withdrawn and the colonic and rectal mucosa examined. There are no colon or rectal mass lesions, polyps, AVMs. There is no infla mmatory change. No diverticulosis was seen. The scope was retroflexed in the anorectal junction examined. Uncomplicated internal hemorrhoids present. Assessment and plan: Screening for colorectal cancer Normal colonoscopy. Next screening colonoscopy will be due in 10 years.
--- NOTE | 2025-01-17 14:03 | W.PM.DSUDISC ---
Date of service: 01/17/25 Discharge Plan Disposition Patient Disposition: Home Condition: Stable Discharge Details Attending Provider: Kathi Brown Primary Care Provider: August Mesnah Recommendations for Follow Up Recommended tests to be ordered by follow up provider: Next colonoscopy due in 10 years Home Meds and New Rx's Prescriptions: Discontinued bisacodyl [Dulcolax (bisacodyl)] 5 mg tablet,delayed release (DR/EC) 5 mg PO ONCE Qty: 4 0RF Rx Instructions: take per colonoscopy instructions polyethylene glycol 3350 17 gram/dose powder 238 g PO ONCE Qty: 238 0RF Rx Instructions: take per colonoscopy instructions No Action insulin glargine [Lantus U-100 Insulin] 100 unit/mL solution 20 unit subcut HS omeprazole 40 mg capsule,delayed release(DR/EC) 40 mg PO DAILY sildenafil 50 mg tablet 50 mg PO DAILY PRN Rx Instructions: administer 30 minutes to 4 hours before activity metformin 1,000 mg tablet 1,000 mg PO DAILY atorvastatin [Lipitor] 80 MG tablet 80 mg PO DAILY lisinopril-hydrochlorothiazide 20-12.5 mg tablet 1 tab PO DAILY Patient Comments: TAKE 1 TABLET BY MOUTH ONCE DAILY FOR BLOOD PRESSURE AND KIDNEYS Discharge Instructions Additional Instructions: Normal colonoscopy! We knew it would be. Next screening colonoscopy will be due in 10 years. Stand Alone Forms: Anesthesia Discharge Inst., Colonoscopy Post Instructions, Antonino Thrasher ([facility]) Activity:: Activity as Tolerated Diet:: As Tolerated Discharge Orders Discharge Orders: Discharge Order (Routine); Ordered 01/17/25 Ordered By: Kathi Bronw DS: Diagnosis Discharge Diagnosis (1) Screening for colorectal cancer: Status: Acute
[2025-01-17 14:05] VITALS: BP 120/83; PULSE 87; RESP 16; TEMP 36.6; O2SAT 96
[2025-01-17 14:36] VITALS: BP 152/82; PULSE 81; RESP 16; TEMP 36.1; O2SAT 97
--- NOTE | 2025-01-17 14:49 | W.ANESPOSTOP ---
Postoperative Evaluation Date, Time and Location Date Performed: 01/17/25 Time Performed: 14:10 Patient Location: Day [facility] Unit Vital Signs Most Recent Imported Vital Signs: Most Recent Vital Signs Temp Pulse Resp BP Pulse Ox 36.1 C L 81 16 152/82 H 97 01/17/25 14:36 01/17/25 14:36 01/17/25 14:36 01/17/25 14:36 01/17/25 14:36 Pain Score Most Recent Pain Score: Most Recent Pain Score Pain Level 0 01/17/25 14:05 Assessment Mental Status: Awake (Alert & Oriented to Patient Baseline) Airway and Respiratory Function: Patent airway with normal (patient baseline) respiratory exam Cardiovascular Function: Hemodynamically Stable Hydration Status: Adequately Hydrated Nausea & Vomiting: No Nausea or Vomiting Pain: Pt. Denies Any Pain Peripheral Nerve Block: Patient did not receive a nerve block
== END 2025-01-17 14:50 | disposition home or self-care (01) ==
PROVIDERS: PCP Student in an Organized Health Care Education/Training Program; Visit Provider Surgery
PROC: 0DJD8ZZ Inspection of Lower Intestinal Tract, Via Natural or Artificial Opening Endoscopic (ICD-10-PCS; CPT 45378; principal; 2025-01-17 14:30)
DX: Z12.11 Encounter for screening for malignant neoplasm of colon (principal); I10 Essential (primary) hypertension; K64.8 Other hemorrhoids
CPT/HCPCS: 45378; J2003; J2704